=== PATIENT | male | born 1950 | race Native Hawaiian/Other Pacific Islander ===

== ENCOUNTER → 2017-01-27 | Outpatient (CLI) | payer OTHER ==
--- NOTE | 2017-01-27 11:26 | Diagnostic Imaging Report ---
EXAMINATION: Liver ultrasound. INDICATION: Elevated liver enzymes. FINDINGS: The pancreas is partially obscured by bowel gas. The liver is fairly homogeneous with no focal lesion. It is hyperechoic which may relate to fatty infiltration. A geographic hypoechoic area in the left hepatic lobe inferiorly is probably related to focal fatty sparing. There is hepatopetal flow in the portal vein. The gallbladder demonstrates no stones or wall thickening. No pericholecystic fluid. The right kidney is 11.2 cm in length with no hydronephrosis or focal lesion. No fluid collection in the upper right abdomen is seen. The sonographic Hernandez sign was reportedly negative. No free fluid or fluid collection in the upper right abdomen is seen. IMPRESSION: Findings suggestive of diffuse hepatic steatosis with focal fatty sparing in the left hepatic lobe. No gallstones or evidence of cholecystitis. Dictated by: Dictated on workstation # [id number]
== END ==
LOC: RAD 09:51
PROVIDERS: ATTEND Nurse Practitioner Family
DX: R74.8 Abnormal levels of other serum enzymes (principal)
CPT/HCPCS: 76705